=== PATIENT | female | born 1985 | race Caucasian/White ===

== ENCOUNTER → 2018-01-09 | Outpatient (REF) | payer BC ==
[2014-11-07 15:15] VITALS: BMI 23.8
[~2018-01-09] MED LIST: Acetaminophen PO; BIRTH CONTROL; DOCU240C67 PO; Ibuprofen PO; Lanolin TP; PER PO
== END ==
LOC: ZZSENDIN 12:00
PROVIDERS: ATTEND Family Medicine
DX: D22.9 Melanocytic nevi, unspecified (principal)
CPT/HCPCS: 88305

== ENCOUNTER → 2018-01-14 | Outpatient (CLI) | payer BC ==
[2014-11-07 15:15] VITALS: BMI 23.8
--- NOTE | 2018-01-14 16:40 | RADIOLOGY IMAGING REPORT ---
FACILITY: [facility] [place] PATIENT NAME: Ayse Patricio : 1985 MR: [id number] V: [id number] EXAM DATE: ORDERING PHYSICIAN: ANJELICA MAE TECHNOLOGIST: Location: [facility] Patient: Ayse Patricio : 1985 Visit/Account:[id number] Date of Sevice: 01/14/2018 THYROID HISTORY: Graves' disease, not currently on medication COMPARISON: April 03, 2016 FINDINGS: SIZE: Right lobe: 5.5 x 1.3 x 1.8 cm Left lobe: 5.3 x 1.2 x 1.5 cm Isthmus: 3 mm PARENCHYMA: Mildly heterogeneous NODULES: Right lobe: * None discrete. Left lobe: * There is a well-circumscribed hypoechoic nodule in the medial inferior left lobe measuring 10 x 5 x 7 mm. This was not identified on the prior study Isthmus: * None discrete. VASCULARITY: Within normal limits. ADDITIONAL FINDINGS: None. IMPRESSION: Both lobes appear slightly heterogeneous although less vascular when compared to the prior study There is a 10 mm solid well-circumscribed hypoechoic nodule inferior left lobe. REFERENCE: 2015 [employer] Management Guidelines for Adult Patients with Thyroid Nodules and D ifferentiated Thyroid Cancer: The [employer] Guidelines Task Force on Thyroid Nodul es and Differentiated Thyroid Cancer. SONOGRAPHIC PATTERNS: * Benign: Purely cystic nodules (no solid component); estimated risk of malignancy <1 percent; no bi opsy recommended. * Very Low Suspicion: Spongiform or partially cystic nodules without any of the sonographic features described in low, intermediate, or high suspicion patterns; estimated risk of malignancy <3 percent; consider FNA at > 2 cm (Observation without FNA is also a reasonable option). * Low Suspicion: Isoechoic or hyperechoic solid nodule, or partially cystic nodule with eccentric so lid areas, without microcalcification, irregular margin or ETE (extra-thyroidal extension), or taller than wide shape; estimated risk of malignancy 5-10 percent; recommend FNA at >1.5 cm. * Intermediate Suspicion: Hypoechoic solid nodule with smooth margins without microcalcifications, E TE (extra-thyroidal extension), or taller than wide shape; estimated risk of malignancy 10-20 percent ; recommend FNA at > 1 cm. * High Suspicion: Solid hypoechoic nodule or solid hypoechoic component of a partially cystic nodule with one or more of the following features: irregular margins (infiltrative, microlobulated), microc alcifications, taller than wide shape, rim calcifications with small extrusive soft tissue component, evidence of ETE (extra-thyroidal extension); estimated risk of malignancy >70-90 percent; recommend FNA at > 1 cm. NOTES: * Although a sonographically suspicious subcentimeter thyroid nodule without evidence of extrathyroi sixto extension or sonographically suspicious lymph nodes may be observed with close sonographic follow -up rather than pursuing immediate FNA, patient age and preference may modify decision-making. A > 50% interval increase in nodule volume and/or development of new suspicious sonographic features are felt to be a valid reasons for potential re-aspiration of a nodule previously shown to have benig n FNA cytology. Report Dictated By: Vicki Mesa MD at 01/14/2018 4:32 PM Report E-Signed By: Vicki Mesa MD at 01/14/2018 4:35 PM WSN:[id number]
== END ==
LOC: US 01:14
PROVIDERS: ATTEND Physician Assistant
DX: E04.9 Nontoxic goiter, unspecified (principal)
CPT/HCPCS: 76536

== ENCOUNTER → 2018-07-15 | Outpatient (CLI) | payer BC ==
[2014-11-07 15:15] VITALS: BMI 23.8
--- NOTE | 2018-07-16 03:45 | RADIOLOGY IMAGING REPORT ---
[place] [facility] [place]: Ayse Patricio : 1985 MR: [id number] V: [id number] EXAM DATE: ORDERING PHYSICIAN: ANJELICA MAE TECHNOLOGIST: Location: [facility] [place] Patient: Ayse Patricio : 1985 Visit/Account:[id number] Date of Sevice: 07/15/2018 Ultrasound of the thyroid: Indication: Follow-up evaluation of thyromegaly and nodule. Technique: Routine imaging protocol. Comparison: 01/14/2018 Right lobe: Enlarged, measuring 5.2 x 1.9 x 1.1 cm. The parenchyma appears homogeneous. There is no e vidence of nodule, cyst or calcification. Isthmus: Measures 2 mm and appears unremarkable. Left lobe: Enlarged, measuring 5.4 x 1.7 x 1.1 cm. In the posterior margin of the lower pole, there i s persistent evidence of a well-circumscribed isoechoic nodule, measuring 11 x 7 x 4 mm, which is not significantly changed. There is no evidence of new nodule, cyst, or calcification. Impression: Stable thyromegaly and small left thyroid nodule, with low suspicion for malignancy. REFERENCE: 2015 [place] [employer] Management Guidelines for Adult Patients with Thyroid Nodules and D ifferentiated Thyroid Cancer: The [place] [employer] Guidelines Task Force on Thyroid Nodul es and Differentiated Thyroid Cancer. SONOGRAPHIC PATTERNS: * Benign: Purely cystic nodules (no solid component); estimated risk of malignancy <1 percent; no bi opsy recommended. * Very Low Suspicion: Spongiform or partially cystic nodules without any of the sonographic features described in low, intermediate, or high suspicion patterns; estimated risk of malignancy <3 percent; consider FNA at > 2 cm (Observation without FNA is also a reasonable option). * Low Suspicion: Isoechoic or hyperechoic solid nodule, or partially cystic nodule with eccentric so lid areas, without microcalcification, irregular margin or ETE (extra-thyroidal extension), or taller than wide shape; estimated risk of malignancy 5-10 percent; recommend FNA at >1.5 cm. * Intermediate Suspicion: Hypoechoic solid nodule with smooth margins without microcalcifications, E TE (extra-thyroidal extension), or taller than wide shape; estimated risk of malignancy 10-20 percent ; recommend FNA at > 1 cm. * High Suspicion: Solid hypoechoic nodule or solid hypoechoic component of a partially cystic nodule with one or more of the following features: irregular margins (infiltrative, microlobulated), microc alcifications, taller than wide shape, rim calcifications with small extrusive soft tissue component, evidence of ETE (extra-thyroidal extension); estimated risk of malignancy >70-90 percent; recommend FNA at > 1 cm. NOTES: * Although a sonographically suspicious subcentimeter thyroid nodule without evidence of extrathyroi sixto extension or sonographically suspicious lymph nodes may be observed with close sonographic follow -up rather than pursuing immediate FNA, patient age and preference may modify decision-making. * A > 50% interval increase in nodule volume and/or development of new suspicious sonographic featur es are felt to be a valid reasons for potential re-aspiration of a nodule previously shown to have be nign FNA cytology. Report Dictated By: Anastacio Farrell MD at 07/16/2018 3:32 AM Report E-Signed By: Anastacio Farrell MD at 07/16/2018 3:39 AM WSN:[id number]
== END ==
LOC: US 03:17
PROVIDERS: ATTEND Physician Assistant
DX: E05.90 Thyrotoxicosis, unspecified without thyrotoxic crisis or storm (principal)
CPT/HCPCS: 76536